=== PATIENT | male | born 1940 | race Caucasian/White ===

== ENCOUNTER 2020-06-14 07:32 | Outpatient (CLI) | payer MEDICARE, BC ==
[2020-06-14] VITALS (21 sets, daily range): BP systolic 105–144; BP diastolic 62–88
[~2020-06-14 07:32] MED LIST: ASPI-1264 PO; FLEC50TA10 PO; LOP25T PO; MULT-1047 PO
== END 2020-06-14 23:59 | disposition home or self-care (01) ==
LOC: CARD DIAG 07:32
PROVIDERS: ATTEND Internal Medicine Cardiovascular Disease
DX: R42 Dizziness and giddiness (principal)
CPT/HCPCS: 93660

== ENCOUNTER 2022-03-07 09:59 | Day surgery (SDC) | payer MEDICARE, BC ==
[2022-03-06 11:42] LABS: BASOPHILS % (AUTO) 0.3 % (0-1); EOSINOPHILS # (AUTO) 0.1 X10'3 (0-0.9); HEMATOCRIT 35.3 % (42.0-52.0); HEMOGLOBIN 12.1 g/dl (14.0-17.9); LYMPHOCYTES # (AUTO) 1.3 X10'3 (1.1-4.8); LYMPHOCYTES % (AUTO) 20.8 % (21-51); MEAN CORPUSCULAR HEMOGLOBIN 31.9 PG (27.0-31.0); MEAN CORPUSCULAR HGB CONC 34.3 g/dL (33.0-36.5); MEAN PLATELET VOLUME 8.9 FL (7.4-10.4); MONOCYTES # (AUTO) 0.5 X10'3 (0-0.9); MONOCYTES % (AUTO) 7.9 % (2-12); NEUTROPHILS # (AUTO) 4.2 X10'3 (1.8-7.7); PLATELET COUNT 146 X10'3 (140-440); RED CELL DISTRIBUTION WIDTH 13.3 % (11.5-14.5)
[2022-03-06 11:52] LABS: ANION GAP 10 (8-16); BLOOD UREA NITROGEN 33 MG/DL (7-18); BUN/CREATININE RATIO 24.8 (5.4-32.0); CALCIUM 8.9 MG/DL (8.5-10.1); CHLORIDE 106 MMOL/L (99-107); CREATININE 1.33 MG/DL (0.60-1.10); GLUCOSE 112 MG/DL (70-104); POTASSIUM 4.2 MMOL/L (3.5-5.1); SODIUM 141 MMOL/L (135-145); TOTAL CARBON DIOXIDE 25.2 MMOL/L (24-32); eGFR 52 ML/MIN
[2022-03-06 12:48] LABS: APTT 28 SECONDS (22-32)
[~2022-03-07] VITALS: Ht 177.8 cm; Wt 80.4 kg
[2022-03-07] VITALS (9 sets, daily range): BP systolic 108–137; BP diastolic 51–70
[2022-03-07] MEDS ORDERED: ceFAZolin inj. 2,000 MG in normal saline soln 50 ML IV ONE (10:15)
[2022-03-07] MEDS ORDERED: normal saline 1000ml 1,000 ML IV PRN (10:15)
[2022-03-07] MEDS ORDERED: FLO0.4C PO (10:40)
[2022-03-07] MEDS ORDERED: APIX5TAB3 PO (10:40)
[2022-03-07] MEDS ORDERED: ceFAZolin 1000mg inj ONE (11:48)
[2022-03-07] MEDS ORDERED: LIDOcaine 1% W/epiNEPHrine 1:100,000 20ml vial ONE (11:48)
[2022-03-07] MEDS ORDERED: fentaNYL/PF 50MCG/1 ML 2ML syringe ONE (12:43)
[2022-03-07] MEDS ORDERED: midazolam 1 mg/ML 2ml injection ONE (12:44)
[2022-03-07] MEDS ORDERED: vancomycin/NS 1 GM in NS 250 ML IV ONE (15:00)
== END 2022-03-07 17:54 | disposition home or self-care (01) ==
LOC: SSTAY O 09:59
PROVIDERS: ATTEND Internal Medicine Cardiovascular Disease
DX: Z45.010 Encounter for checking and testing of cardiac pacemaker pulse generator [battery] (principal); I25.10 Atherosclerotic heart disease of native coronary artery without angina pectoris; I49.5 Sick sinus syndrome; I48.0 Paroxysmal atrial fibrillation; Z79.899 Other long term (current) drug therapy; G47.30 Sleep apnea, unspecified; I73.9 Peripheral vascular disease, unspecified; I36.1 Nonrheumatic tricuspid (valve) insufficiency; E78.5 Hyperlipidemia, unspecified; Z98.890 Other specified postprocedural states; Z79.01 Long term (current) use of anticoagulants
CPT/HCPCS: 33228; 36415; 80048; 85025; 85610; 85730; 93005; 99152; 99153; C1786; J0690; J2250; J3010; J3370; J3490; J7030; A4620; A6258; A6449